=== PATIENT | male | born 1950 | race Caucasian/White ===

== ENCOUNTER 2020-03-05 12:07 | Inpatient (IN) | payer OTHER ==
--- NOTE | 2020-03-05 12:24 | BHS.RME ---
Substance Use & Tx History - Substance Use History Alcohol Substance amount: 1/2 to one pint Vodka Frequency of use: Daily Substance route: Oral Date of Last Use: 03/05/20 Physical/Psych/Mental Status - Thinking Thought content: Future oriented - Physical Health Problems Is patient presently having any pain?: No Does patient presently have any injuries (include location): No Does patient currently have a fever: No CIWA Nausea/Vomitin-No Nausea/No Vomiting Muscle Tremors: 2 Anxiety: 2 Agitation: 2 Paroxysmal Sweats: No Perspiration Orientation: 0-Oriented Tacttile Disturbances: 0-None Auditory Disturbances: 0-None Visual Disturbances: 0-None Headache: 0-None Present (Meets criteria due to current level of intoxication obscures full extent of withdrawal) CIWA-Ar Total Score: 6
[2020-03-05 12:36] VITALS: BMI 23.5
--- NOTE | 2020-03-05 12:55 | HP ---
CIWA Score Nausea/Vomitin-No Nausea/No Vomiting Muscle Tremors: 2 Anxiety: 2 Agitation: 2 Paroxysmal Sweats: No Perspiration Orientation: 0-Oriented Tacttile Disturbances: 0-None Auditory Disturbances: 0-None Visual Disturbances: 0-None Headache: 0-None Present (Meets criteria due to current level of intoxication obscures full extent of withdrawal) CIWA-Ar Total Score: 6 - Admission Criteria [facility]ASAS Guidelines: Admission for Medically Managed Detox: Requires at least one of the followin. CIWA greater than 12 2. Seizures within the past 24 hours 3. Delirium tremens within the past 24 hours 4. Hallucinations within the past 24 hours 5. Acute intervention needed for co occurring medical disorder 6. Acute intervention needed for co occurring psychiatric disorder 7. Severe withdrawal that cannot be handled at a lower level of care (continued vomiting, continued diarrhea, abnormal vital signs) requiring intravenous medication and/or fluids 8. Admission ROS [facility] - [facility] Chief Complaint: "I need to stop drinking." Allergies/Adverse Reactions: Allergies Allergy/AdvReac Type Severity Reaction Status Date / Time No Known Allergies Allergy Verified 03/05/20 12:49 History of Present Illness: 69 year old male with history of alcohol dependence with withdrawal and intoxication, nicotine dependence. He was at [facility] 2 days ago for hypertensive episode. 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 Has no legal problems. LESLIE=.[id number] CIWA=6 Meets criteria due to intoxication. Exam Limitations: No Limitations - Ebola screening Have you traveled outside of the country in the last 21 days: No Have you had contact with anyone from an Ebola affected area: No Have you been sick,other than usual withdrawal symptoms: No Do you have a fever: No - Review of Systems Constitutional: Chills, Diaphoresis EENT: reports: No Symptoms Reported Respiratory: reports: No Symptoms reported Cardiac: reports: No Symptoms Reported GI: reports: No Symptoms Reported : reports: No Symptoms Reported Musculoskeletal: reports: No Symptoms Reported Integumentary: reports: No Symptoms Reported Neuro: reports: Tingling, Tremors Endocrine: reports: No Symptoms Reported Hematology: reports: No Symptoms Reported Psychiatric: reports: Judgement Intact, Mood/Affect Appropiate, Orientated x3, Agitated, Anxious Other Systems: Reviewed and Negative Patient History - Patient Medical History Hx Anemia: No Hx Asthma: No Hx Chronic Obstructive Pulmonary Disease (COPD): No Hx Cancer: No Hx Cardiac Disorders: No Hx Congestive Heart Failure: No Hx Hypertension: Yes Hx Hypercholesterolemia: No Hx Pacemaker: No HX Cerebrovascular Accident: No Hx Seizures: No Hx Dementia: No Hx Diabetes: No Hx Gastrointestinal Disorders: No Hx Liver Disease: No Hx Genitourinary Disorders: No Hx Sexually Transmitted Disorders: No Hx Renal Disease (ESRD): No Hx Thyroid Disease: No Hx Human Immunodeficiency Virus (HIV): No Hx Hepatitis C: No Hx Depression: No Hx Suicide Attempt: No Hx Bipolar Disorder: No Hx Schizophrenia: No - Patient Surgical History Past Surgical History: Yes Hx Abdominal Surgery: Yes (ulcer surgery) - Smoking Cessation Smoking history: Current every day smoker Have you smoked in the past 12 months: Yes Aproximately how many cigarettes per day: 7 Hx Chewing Tobacco Use: No Initiated information on smoking cessation: Yes 'Breaking Loose' booklet given: 03/05/20 - Substances abused Alcohol Substance route: Oral Frequency: Daily Amount used: 1/2 pint vodka Age of first use: 41 Date of last use: 03/04/20 Admission Physical Exam BHS - Vital Signs Vital Signs: Vital Signs - 24 hr 03/05/20 12:35 Temperature 97.8 F Pulse Rate 73 Respiratory 16 Rate Blood Pressure 127/81 - Physical General Appearance: Yes: Moderate Distress, Tremorous, Irritable, Sweating, Anxious HEENTM: Yes: EOMI, Hearing grossly Normal, Normal ENT Inspection, Normocephalic, Normal Voice, CHAVEZ, Pharynx Normal, Tm's normal Respiratory: Yes: Chest Non-Tender, Lungs Clear, Normal Breath Sounds, No Respiratory Distress, No Accessory Muscle Use Neck: Yes: No masses,lesions,Nodules, Supple, Trachea in good position Breast: Yes: Within Normal Limits Cardiology: Yes: Regular Rhythm, Regular Rate, S1, S2 Abdominal: Yes: Normal Bowel Sounds, Non Tender, Flat, Soft Genitourinary: Yes: Within Normal Limits Back: Yes: Normal Inspection Musculoskeletal: Yes: full range of Motion, Gait Steady, Pelvis Stable Extremities: Yes: Normal Capillary Refill, Normal Inspection, Normal Range of Motion, Non-Tender Neurological: Yes: 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 intact, Fully Oriented, Alert, Motor Strength 5/5, Normal Mood/Affect, Normal Response Integumentary: Yes: Normal Color, Warm Lymphatic: Yes: Within Normal Limits - Diagnostic (1) Alcohol dependence with intoxication Current Visit: Yes Status: Acute (2) Arrhythmia Current Visit: Yes Status: Acute Cleared for Admission [facility] - Detox or Rehab [facility] Level of Care: Medically Managed Detox Regimen/Protocol: Librium Claeared for Rehab Admission: No Screened but not Admitted - Documentation of Visit Screened but not Admitted: No Breathalyzer - Breathalyzer Breathalyzer: 0.202 Vital Signs - Vital Signs Vital signs refused: No Temperature: 97.8 F Pulse Rate: 73 Respiratory Rate: 16 Blood Pressure: 127/81 BP Location: Left Arm Blood Pressure position: Sitting - Height Height: 5 ft 7 in - Weight Weight: 150 lb Weight measurement method: Standing scale - BMI Body Mass Index (BMI): 23.5 - Bowel Function Bowel Movement: No Urine Drug Screen - Test Device Lot number: [id number] Expiration date: 09/11/21 - Control Is test valid?: Yes - Results Drug screen NEGATIVE: Yes Urine drug screen results: JESSICA-Cocaine, BZO-Benzodiazepines Inpatient Rehab Admission - Rehab Decision to Admit Inpatient rehab admission?: No
[2020-03-05] MEDS ORDERED: IBUPROFEN 400 MG TABLET (FP) PO PRN (13:01)
[2020-03-05] MEDS ORDERED: BISMUTH SUBSALICYLATE 524 MG/30 ML UD PO PRN (13:01)
[2020-03-05] MEDS ORDERED: ACETAMINOPHEN 325 MG TABLET (FP) PO PRN ×2 (13:01)
[2020-03-05] MEDS ORDERED: ONDANSETRON *ODT* 4 MG TABLET SL PRN (13:01)
[2020-03-05] MEDS ORDERED: NICOTINE POLACRILEX 2 MG GUM BUC PRN (13:01)
[2020-03-05] MEDS ORDERED: MAGNESIUM HYDROX 2400MG/30ML ORAL SUSPENSION 30 ML CUP PO PRN (13:01)
[2020-03-05] MEDS ORDERED: MENTHOL/PHENOL 1 EACH UD MM PRN (13:01)
[2020-03-05] MEDS ORDERED: MAG HYDROX/AL HYDROX/SIMETH 30 ML UNIT-DOSE CUP PO PRN (13:01)
[2020-03-05] MEDS ORDERED: METHOCARBAMOL 500 MG TABLET PO PRN (13:01)
[2020-03-05] MEDS ORDERED: chlordiazePOXIDE HCL 25 MG CAPSULE PO PRN (13:01)
[2020-03-05] MEDS ORDERED: MAGNESIUM CITRATE 300 ML BOTTLE PO PRN (13:01)
[2020-03-05] MEDS ORDERED: NICOTINE 7 MG/24 HOURS TOPICAL PATCH TD SCH (13:15)
[2020-03-05] MEDS ORDERED: hydrOXYzine PAMOATE 25 MG CAPSULE (FP) PO SCH (14:00)
[2020-03-05] MEDS: PRENATAL VITAMINS W/ FOLIC ACID TABLET (FP) PO SCH (14:10)
[2020-03-05] MEDS: chlordiazePOXIDE HCL 25 MG CAPSULE PO SCH ×3 (14:11→22:15)
[2020-03-05 14:55] LABS: HEMATOCRIT 34.8 % (35.4-49); HEMOGLOBIN 11.5 GM/dL (11.7-16.9); MCH 32.4 pg (25.7-33.7); MEAN CELL VOLUME 98.1 fl (80-96); MEAN PLT VOLUME 7.5 fl (7.5-11.1); PLATELET COUNT 301 K/MM3 (134-434); RBC 3.55 M/mm3 (4.00-5.60); RDW 14.4 % (11.9-15.9)
[2020-03-05 15:09] LABS: ALBUMIN 3.6 g/dl (3.4-5.0); BILIRUBIN,TOTAL 0.4 mg/dL (0.2-1); BLOOD UREA NITROGEN 18.2 mg/dL (7-18); CALCIUM 8.7 mg/dL (8.5-10.1); CREATININE 1.7 mg/dL (0.55-1.3); POTASSIUM 4.2 mmol/L (3.5-5.1); TOT PROT 8.1 g/dl (6.4-8.2)
--- NOTE | 2020-03-05 15:12 | EKG ---
Test Reason : Blood Pressure : / mmHG Vent. Rate : 065 BPM Atrial Rate : 065 BPM P-R Int : 176 ms QRS Dur : 090 ms QT Int : 402 ms P-R-T Axes : 066 -18 036 degrees QTc Int : 418 ms NORMAL SINUS RHYTHM NORMAL ECG NO PREVIOUS ECGS AVAILABLE Confirmed by MD David, Toni ([id number]) on 03/05/2020 3:12:04 PM Referred By: Confirmed By:Toni Hernandez MD
[2020-03-05] MEDS: THIAMINE HCL 100 MG TABLET (FP) PO SCH (22:15)
[2020-03-05] MEDS: MELATONIN 5 MG TABLETS PO SCH (22:16)
[2020-03-06] MEDS: chlordiazePOXIDE HCL 25 MG CAPSULE PO SCH ×4 (05:54→22:25)
[2020-03-06] MEDS: PRENATAL VITAMINS W/ FOLIC ACID TABLET (FP) PO SCH (10:11)
[2020-03-06] MEDS ORDERED: PNEUMOC 13-VAL CONJ-DIP CRM/PF 0.5 ML DISP.SYRIN IM ONE (12:00)
[2020-03-06] MEDS ORDERED: FLU VACCINE (FLULAVAL) PF 60 MCG/0.5 ML SYRINGE 2020-2021 IM ONE (12:00)
[2020-03-06] MEDS ORDERED: PNEUMOCOCCAL 23 VACCINE 0.5 ML VIAL IM ONE (12:00)
[2020-03-06] MEDS ORDERED: amLODIPine BESYLATE 10 MG TABLET (FP) PO ONE (12:27)
--- NOTE | 2020-03-06 12:27 | PN ---
[facility] CIWA - CIWA Score Nausea/Vomitin-No Nausea/No Vomiting Muscle Tremors: 3 Anxiety: 3 Agitation: 3 Paroxysmal Sweats: 2 Orientation: 0-Oriented Tacttile Disturbances: 0-None Auditory Disturbances: 0-None Visual Disturbances: 0-None Headache: 0-None Present CIWA-Ar Total Score: 11 [facility] Progress Note (SOAP) Subjective: body aches tired sweats Objective: 03/06/20 12:26 Vital Signs Temperature 97.8 F 03/06/20 09:15 Pulse Rate 84 03/06/20 09:15 Respiratory Rate 18 03/06/20 09:15 Blood Pressure 147/104 H 03/06/20 09:15 O2 Sat by Pulse Oximetry (%) 96 03/06/20 05:23 Laboratory Tests 03/05/20 03/05/20 03/05/20 12:55 12:55 12:55 WBC 6.0 RBC 3.55 L Hgb 11.5 L Hct 34.8 L MCV 98.1 H MCH 32.4 MCHC 33.0 RDW 14.4 Plt Count 301 MPV 7.5 Sodium 141 Potassium 4.2 Chloride 107 Carbon Dioxide 27 Anion Gap 6 L BUN 18.2 H Creatinine 1.7 H Est GFR (CKD-EPI)AfAm 46.98 Est GFR (CKD-EPI)NonAf 40.54 Random Glucose 87 Calcium 8.7 Total Bilirubin 0.4 AST 25 ALT 21 Alkaline Phosphatase 67 Total Protein 8.1 Albumin 3.6 Syphilis Serology Non-reactive HIV Ag/Ab Combo Qual 03/05/20 14:00 WBC RBC Hgb Hct MCV MCH MCHC RDW Plt Count MPV Sodium Potassium Chloride Carbon Dioxide Anion Gap BUN Creatinine Est GFR (CKD-EPI)AfAm Est GFR (CKD-EPI)NonAf Random Glucose Calcium Total Bilirubin AST ALT Alkaline Phosphatase Total Protein Albumin Syphilis Serology HIV Ag/Ab Combo Qual Negative labs noted repeat BP aaox3 ambulating no acute distress Assessment: 03/06/20 12:26 withdrawals Plan: continue detox increase fluids pharmacy was called and it was confirmed that pt is on toprol xr and lisinopril for h/o HTN
[2020-03-06] MEDS ORDERED: LISINOPRIL 10 MG TABLET PO ONE (12:49)
[2020-03-06] MEDS: metoPROLOL SUCCINATE 25 MG TAB.SR.24H (FP) PO SCH (13:14)
[2020-03-06] MEDS ORDERED: cloNIDine HCL 0.1 MG TABLET PO ONE (21:42)
[2020-03-06] MEDS: MELATONIN 5 MG TABLETS PO SCH (22:25)
[2020-03-06] MEDS: THIAMINE HCL 100 MG TABLET (FP) PO SCH (22:25)
[2020-03-07] MEDS: chlordiazePOXIDE HCL 25 MG CAPSULE PO SCH ×4 (05:46→22:09)
[2020-03-07] MEDS ORDERED: amLODIPine BESYLATE 10 MG TABLET (FP) PO SCH (10:00)
[2020-03-07] MEDS: PRENATAL VITAMINS W/ FOLIC ACID TABLET (FP) PO SCH (10:16)
[2020-03-07] MEDS: LISINOPRIL 10 MG TABLET PO SCH (10:16)
[2020-03-07] MEDS: metoPROLOL SUCCINATE 25 MG TAB.SR.24H (FP) PO SCH (10:17)
--- NOTE | 2020-03-07 10:41 | PN ---
S CIWA - CIWA Score Nausea/Vomitin-No Nausea/No Vomiting Muscle Tremors: 3 Anxiety: 2 Agitation: 2 Paroxysmal Sweats: No Perspiration Orientation: 0-Oriented Tacttile Disturbances: 0-None Auditory Disturbances: 0-None Visual Disturbances: 0-None Headache: 0-None Present CIWA-Ar Total Score: 7 [facility] Progress Note (SOAP) Subjective: sweats interrupted sleep Objective: 03/07/20 10:40 Vital Signs Temperature 97.3 F L 03/07/20 08:55 Pulse Rate 75 03/07/20 08:55 Respiratory Rate 18 03/07/20 08:55 Blood Pressure 120/77 03/07/20 08:55 O2 Sat by Pulse Oximetry (%) 99 03/07/20 08:55 Laboratory Tests 03/05/20 03/05/20 03/05/20 12:55 12:55 12:55 WBC 6.0 RBC 3.55 L Hgb 11.5 L Hct 34.8 L MCV 98.1 H MCH 32.4 MCHC 33.0 RDW 14.4 Plt Count 301 MPV 7.5 Sodium 141 Potassium 4.2 Chloride 107 Carbon Dioxide 27 Anion Gap 6 L BUN 18.2 H Creatinine 1.7 H Est GFR (CKD-EPI)AfAm 46.98 Est GFR (CKD-EPI)NonAf 40.54 Random Glucose 87 Calcium 8.7 Total Bilirubin 0.4 AST 25 ALT 21 Alkaline Phosphatase 67 Total Protein 8.1 Albumin 3.6 Syphilis Serology Non-reactive COVID-19 (TERESITA) HIV Ag/Ab Combo Qual 03/05/20 03/05/20 14:00 14:00 WBC RBC Hgb Hct MCV MCH MCHC RDW Plt Count MPV Sodium Potassium Chloride Carbon Dioxide Anion Gap BUN Creatinine Est GFR (CKD-EPI)AfAm Est GFR (CKD-EPI)NonAf Random Glucose Calcium Total Bilirubin AST ALT Alkaline Phosphatase Total Protein Albumin Syphilis Serology COVID-19 (TERESITA) Not detected HIV Ag/Ab Combo Qual Negative labs noted aaox3 ambulating no acute distress Assessment: 03/07/20 10:41 withdrawals Plan: continue detox
[2020-03-07] MEDS: MELATONIN 5 MG TABLETS PO SCH (22:09)
[2020-03-07] MEDS: THIAMINE HCL 100 MG TABLET (FP) PO SCH (22:09)
[2020-03-08] MEDS ORDERED: chlordiazePOXIDE HCL 10 MG CAPSULE PO PRN
[2020-03-08] MEDS: chlordiazePOXIDE HCL 10 MG CAPSULE PO SCH ×4 (05:54→22:06)
[2020-03-08] MEDS: metoPROLOL SUCCINATE 25 MG TAB.SR.24H (FP) PO SCH (10:28)
[2020-03-08] MEDS: PRENATAL VITAMINS W/ FOLIC ACID TABLET (FP) PO SCH (10:28)
[2020-03-08] MEDS: LISINOPRIL 10 MG TABLET PO SCH (14:22)
--- NOTE | 2020-03-08 17:25 | PN ---
S CIWA - CIWA Score Nausea/Vomitin-No Nausea/No Vomiting Muscle Tremors: None Anxiety: 3 Agitation: 3 Paroxysmal Sweats: 2 Orientation: 0-Oriented Tacttile Disturbances: 0-None Auditory Disturbances: 0-None Visual Disturbances: 0-None Headache: 0-None Present CIWA-Ar Total Score: 8 [facility] Progress Note (SOAP) Subjective: Sweating, Interrupted Sleep, Anxious. Objective: Patient A & O X 3, Observed Ambulating on Detox Unit Unassisted. In No Acute Distress. 03/08/20 17:21 Vital Signs Temperature 98.2 F 03/08/20 13:03 Pulse Rate 107 H 03/08/20 13:03 Respiratory Rate 18 03/08/20 13:03 Blood Pressure 106/86 03/08/20 13:03 O2 Sat by Pulse Oximetry (%) 95 03/08/20 13:03 Laboratory Tests 03/05/20 03/05/20 03/05/20 12:55 12:55 12:55 WBC 6.0 RBC 3.55 L Hgb 11.5 L Hct 34.8 L MCV 98.1 H MCH 32.4 MCHC 33.0 RDW 14.4 Plt Count 301 MPV 7.5 Sodium 141 Potassium 4.2 Chloride 107 Carbon Dioxide 27 Anion Gap 6 L BUN 18.2 H Creatinine 1.7 H Est GFR (CKD-EPI)AfAm 46.98 Est GFR (CKD-EPI)NonAf 40.54 Random Glucose 87 Calcium 8.7 Total Bilirubin 0.4 AST 25 ALT 21 Alkaline Phosphatase 67 Total Protein 8.1 Albumin 3.6 Syphilis Serology Non-reactive COVID-19 ([facility]ESITA) HIV Ag/Ab Combo Qual 03/05/20 03/05/20 14:00 14:00 WBC RBC Hgb Hct MCV MCH MCHC RDW Plt Count MPV Sodium Potassium Chloride Carbon Dioxide Anion Gap BUN Creatinine Est GFR (CKD-EPI)AfAm Est GFR (CKD-EPI)NonAf Random Glucose Calcium Total Bilirubin AST ALT Alkaline Phosphatase Total Protein Albumin Syphilis Serology COVID-19 (TERESITA) Not detected HIV Ag/Ab Combo Qual Negative Lab Results noted. Patient denies known history of Kidney Disease. 03/08/20 17:22 Assessment: 03/08/20 17:23 WITHDRAWAL SYMPTOMS. AZOTEMIA. ANEMIA. Plan: Continue Detox. Patient is currently receiving daily MVI containing B Vitamins and Iron while admitted for Detox. D/C Ibuprofen and Magnesium-Containing Meds. for Abnormal Admission Renal Lab Values. Patient advised to follow-up with PATIENT FINANCIAL REPRESENTATIVE after Discharge from Detox for general medical assessment and for Anemia and for abnormal Renal Labs noted on detox admission laboratory assessment. Patient verbalized understanding of recommendation. Copies of results of all labs drawn while admitted for detox given to patient at time of discharge from detox unit.
[2020-03-08] MEDS: THIAMINE HCL 100 MG TABLET (FP) PO SCH (22:06)
[2020-03-08] MEDS: MELATONIN 5 MG TABLETS PO SCH (22:06)
[2020-03-09] MEDS: chlordiazePOXIDE HCL 10 MG CAPSULE PO SCH ×2 (06:21→18:27)
[2020-03-09] MEDS: PRENATAL VITAMINS W/ FOLIC ACID TABLET (FP) PO SCH (11:15)
--- NOTE | 2020-03-09 15:29 | PN ---
S CIWA - CIWA Score Nausea/Vomitin-No Nausea/No Vomiting Muscle Tremors: None Anxiety: 2 Agitation: 2 Paroxysmal Sweats: No Perspiration Orientation: 0-Oriented Tacttile Disturbances: 0-None Auditory Disturbances: 0-None Visual Disturbances: 0-None Headache: 0-None Present CIWA-Ar Total Score: 4 [facility] Progress Note (SOAP) Subjective: Feels ok Objective: 03/09/20 15:21 Last Vital Signs Temp Pulse Resp BP Pulse Ox 96.9 F L 89 16 125/99 99 03/09/20 13:13 03/09/20 13:13 03/09/20 13:13 03/09/20 13:13 03/09/20 13:13 Elevated b/p: has htn, on medication Laboratory Tests 03/05/20 03/05/20 03/05/20 12:55 12:55 12:55 WBC 6.0 RBC 3.55 L Hgb 11.5 L Hct 34.8 L MCV 98.1 H MCH 32.4 MCHC 33.0 RDW 14.4 Plt Count 301 MPV 7.5 Sodium 141 Potassium 4.2 Chloride 107 Carbon Dioxide 27 Anion Gap 6 L BUN 18.2 H Creatinine 1.7 H Est GFR (CKD-EPI)AfAm 46.98 Est GFR (CKD-EPI)NonAf 40.54 Random Glucose 87 Calcium 8.7 Total Bilirubin 0.4 AST 25 ALT 21 Alkaline Phosphatase 67 Total Protein 8.1 Albumin 3.6 Syphilis Serology Non-reactive COVID-19 (TERESITA) HIV Ag/Ab Combo Qual 03/05/20 03/05/20 14:00 14:00 WBC RBC Hgb Hct MCV MCH MCHC RDW Plt Count MPV Sodium Potassium Chloride Carbon Dioxide Anion Gap BUN Creatinine Est GFR (CKD-EPI)AfAm Est GFR (CKD-EPI)NonAf Random Glucose Calcium Total Bilirubin AST ALT Alkaline Phosphatase Total Protein Albumin Syphilis Serology COVID-19 (TERESITA) Not detected HIV Ag/Ab Combo Qual Negative Labs reviewed: serum creatinine 1.7 (high), GFR low, mild anemia noted Assessment: 03/09/20 15:25 Withdrawal sxs Noted with HTN, BETH vs CKD, and anemia Plan: Withdrawal sxs Can discharge patient tomorrow if lab result stable HTN: monitor b/p, continue antihypertensive medication BETH vs CKD: encourage PO water hydration, repeat BMP Anemia: follow up with PCP for further workup, continue vitamins
[2020-03-09] MEDS: LISINOPRIL 10 MG TABLET PO SCH (15:37)
[2020-03-09] MEDS: metoPROLOL SUCCINATE 25 MG TAB.SR.24H (FP) PO SCH (15:39)
[2020-03-09] MEDS: MELATONIN 5 MG TABLETS PO SCH (22:03)
[2020-03-09] MEDS: THIAMINE HCL 100 MG TABLET (FP) PO SCH (22:03)
[2020-03-10] MEDS ORDERED: chlordiazePOXIDE HCL 10 MG CAPSULE PO ONE (05:00)
--- NOTE | 2020-03-10 09:13 | DS ---
[facility] Detox Discharge Summary Admission Date: 03/05/20 Discharge Date: 03/10/20 - History Present History: Alcohol Dependence - Physical Exam Results Vital Signs: Vital Signs Temperature 96.8 F L 03/10/20 06:27 Pulse Rate 58 L 03/10/20 06:27 Respiratory Rate 16 03/10/20 06:27 Blood Pressure 158/98 03/10/20 06:27 O2 Sat by Pulse Oximetry (%) 95 03/10/20 06:27 - Treatment Hospital Course: Detox Protocol Followed, Detoxed Safely, Responded well, Discharged Condition Good, Rehab Referral Accepted - Medication Discharge Medications: Ambulatory Orders NK [No Known Home Medication] 03/05/20 - Diagnosis (1) Alcohol dependence with intoxication Current Visit: Yes Status: Chronic Qualifiers: Complication of substance-induced condition: uncomplicated Qualified Code(s): F10.220 - Alcohol dependence with intoxication, uncomplicated (2) Anemia Current Visit: Yes Status: Acute (3) Arrhythmia Current Visit: Yes Status: Acute (4) Azotemia Current Visit: Yes Status: Acute - AMA Did Patient Leave Against Medical Advice: No
[2020-03-10 09:38] VITALS: BP 136/82; PULSE 89; TEMP 97.5
[2020-03-10 11:05] LABS: POTASSIUM 4.3 mmol/L (3.5-5.1)
[2020-03-10 11:11] LABS: BLOOD UREA NITROGEN 28.4 mg/dL (7-18); CALCIUM 8.8 mg/dL (8.5-10.1); CREATININE 1.5 mg/dL (0.55-1.3)
== END 2020-03-10 09:32 | disposition home or self-care (01) | DRG 775 ==
LOC: YASAS 12:07 → Y6N 13:11
PROVIDERS: ADMIT Allergy & Immunology; ATTEND Allergy & Immunology
PROC: HZ2ZZZZ Detoxification Services for Substance Abuse Treatment (ICD-10-PCS; principal; 2020-03-05)
DX: F10.230 Alcohol dependence with withdrawal, uncomplicated (principal); F10.220 Alcohol dependence with intoxication, uncomplicated; F17.211 Nicotine dependence, cigarettes, in remission; D64.9 Anemia, unspecified; I49.9 Cardiac arrhythmia, unspecified; I12.9 Hypertensive chronic kidney disease with stage 1 through stage 4 chronic kidney disease, or unspecified chronic kidney disease; N17.9 Acute kidney failure, unspecified; N18.9 Chronic kidney disease, unspecified; R79.89 Other specified abnormal findings of blood chemistry; M21.962 Unspecified acquired deformity of left lower leg; M21.961 Unspecified acquired deformity of right lower leg; M21.6X2 Other acquired deformities of left foot; M21.6X1 Other acquired deformities of right foot; Z87.11 Personal history of peptic ulcer disease; Z98.890 Other specified postprocedural states
CPT/HCPCS: 36415; 80048; 80053; 85027; 86780; 87389; 93005; 93010; G0008; J0735; Q2036; U0003